=== PATIENT | male | born 1945 | race Caucasian/White ===

== ENCOUNTER → 2019-09-04 | Outpatient (CLI) | payer MEDICARE ==
[~2019-09-04] MED LIST: REGADENOSON 0.4 MG/5 ML SYRINGE ONE
== END | disposition home or self-care (01) ==
LOC: CFH 09:58
PROVIDERS: ATTEND Internal Medicine Cardiovascular Disease
DX: I34.0 Nonrheumatic mitral (valve) insufficiency (principal); I11.0 Hypertensive heart disease with heart failure; I50.9 Heart failure, unspecified; E78.5 Hyperlipidemia, unspecified; E11.9 Type 2 diabetes mellitus without complications; I25.2 Old myocardial infarction; R94.31 Abnormal electrocardiogram [ECG] [EKG]
CPT/HCPCS: 78452; 93017; 93306; A9502; J2785

== ENCOUNTER 2020-02-10 22:48 | Observation (INO) | payer MEDICARE ==
[~2020-02-10] VITALS: Ht 205.7 cm; Wt 105.0 kg
--- NOTE | 2020-02-11 00:25 | NUR ---
PT TO ROOM FROM LOBBY
--- NOTE | 2020-02-11 00:30 | NUR ---
PT PRESENTS TO THE ER C/O WEAKNESS, GRADUAL ONSET X SEVERAL DAYS. FINALLY BEGAN TO GET WORSE TODAY PROMPTING HIS VISIT HERE. PT ALSO C/O SEVERE SWELLING TO THE LEGS BILATERALLY. DENIES ANY CP, SOB, LACEY, DIZZINESS. DOES REPORT A HX OF CHF IN WHICH HE WEARS 3 LPM O2 AT HOME CONTINUOUSLY. SATS 97%. PT WAS FOUND ATTEMPTING TO WALK TO RESTROOM WITH WALKER. APPEARED TO BE BREATHLESS. PT ASKED TO RETURN TO [facility] AND HE WAS PLACED BACK ON O2 AND PROVIDED WITH A URINAL. ALL MONITORING EQUIPMENT APPLIED, SHOWING SINUS RHYTHM ON THE MONITOR WITH A WIDE QRS. PT REPORTS A HX OF DE WITH 3 STENTS (INFERIOR). 12 LEAD EKG COMPLETE. ALL VITALS STABLE. CALL LIGHT WITHIN REACH. WILL CONTINUE TO MONITOR.
[2020-02-11 01:01] LABS: BASOPHILS # (AUTO) 0.04 x10^3/uL (0-0.1); BASOPHILS % (AUTO) 1 % (0-1); EOSINOPHILS # (AUTO) 0.06 x10^3/uL (0-0.4); EOSINOPHILS % (AUTO) 1 % (1-7); LYMPHOCYTES # (AUTO) 1.84 x10^3/uL (1-3.4); LYMPHOCYTES % (AUTO) 22 % (22-44); MD NO; MEAN CORPUSCULAR HEMOGLOBIN 29.9 pg (27.5-34.5); MEAN CORPUSCULAR HGB CONC 32.7 g/dL (33.2-36.2); MEAN CORPUSCULAR VOLUME 91.4 fL (81-97); MEAN PLATELET VOLUME 8.2 fL (7.4-10.4); MONOCYTES # (AUTO) 0.62 x10^3/uL (0.2-0.8); MONOCYTES % (AUTO) 7 % (2-9); NEUTROPHILS # (AUTO) 5.94 x10^3/uL (1.8-6.8); NEUTROPHILS % (AUTO) 70 % (42-75); PLATELET COUNT 182 x10^3/uL (130-400); RED BLOOD COUNT 4.55 x10^6/uL (4.38-5.82); RED CELL DISTRIBUTION WIDTH 14.6 % (9.4-14.8)
[2020-02-11 01:13] LABS: ALBUMIN 3.5 g/dL (3.4-5.0); ANION GAP 4 mmol/L (5-15); CALCIUM 9.2 mg/dL (8.5-10.1); CHLORIDE 106 mmol/L (98-107); CREATININE 1.99 mg/dL (0.7-1.3)
[2020-02-11 01:16] LABS: TROPONIN I 0.023 ng/mL (0.000-0.045)
--- NOTE | 2020-02-11 01:57 | NUR ---
Report received from OLU Ramos. This RN to assume care.
--- NOTE | 2020-02-11 02:08 | NUR ---
PT'S DAUGHTER HERBIE [phone], PT HAS GIVEN PERMISSION TO RELEASE ANY MEDICAL INFORMATION TO HER.
[2020-02-11] MEDS ORDERED: FUROSEMIDE 40 MG/4 ML ONE (02:28)
[2020-02-11] MEDS ORDERED: FUROSEMIDE 40 MG/4 ML IV ONE (02:30)
[2020-02-11] MEDS ORDERED: ACETAMINOPHEN 325 MG TABLET PO PRN (03:00)
[2020-02-11] MEDS ORDERED: FURO20TA3 PO (03:20)
[2020-02-11] MEDS ORDERED: BISA-49 PO (03:20)
[2020-02-11] MEDS ORDERED: CHOL10003 PO (03:20)
[2020-02-11] MEDS ORDERED: ATOR10TA9 PO (03:20)
[2020-02-11] MEDS ORDERED: CLOP75TA PO (03:20)
[2020-02-11] MEDS ORDERED: GABA-827 PO (03:20)
[2020-02-11 03:54] VITALS: BP 120/76
[2020-02-11] MEDS: ENOXAPARIN 40 MG/0.4 ML SQ SCH (04:53)
[2020-02-11 06:43] VITALS: BP 135/79
[2020-02-11] MEDS ORDERED: INSULIN LISPRO 100 UNITS/ML, PEN SQ-INSULIN SCH (07:00)
[2020-02-11 07:42] LABS: TROPONIN I 0.025 ng/mL (0.000-0.045)
[2020-02-11] MEDS ORDERED: FUROSEMIDE 40 MG/4 ML IV SCH (09:00)
[2020-02-11] MEDS ORDERED: METO-95 PO (10:40)
[2020-02-11] MEDS ORDERED: POTA8TAB46 PO (10:40)
[2020-02-11] MEDS ORDERED: ATOR20TA37 PO (10:40)
[2020-02-11] MEDS ORDERED: FURO40TA6 PO (10:40)
[2020-02-11] MEDS ORDERED: SPIR25TA PO (10:40)
[2020-02-11] MEDS ORDERED: LISI5TAB7 PO (10:40)
[2020-02-11] MEDS ORDERED: TAMS-11 PO (10:40)
[2020-02-11 11:47] VITALS: BP 112/65
[2020-02-11] MEDS: INSULIN LISPRO 100 UNITS/ML, PEN SQ-INSULIN SCH ×3 (11:49→21:08)
[2020-02-11] MEDS: CHOLECALCIFEROL 5,000u TAB PO SCH (11:50)
[2020-02-11] MEDS: LISINOPRIL 5 MG TABLET PO SCH (11:50)
[2020-02-11] MEDS: METOPROLOL SUCCINATE 100 MG TAB.ER.24H PO SCH (11:50)
[2020-02-11] MEDS: BISACODYL 5 MG EC TABLET PO SCH (11:50)
[2020-02-11] MEDS: CLOPIDOGREL 75 MG TABLET PO SCH (11:50)
[2020-02-11] MEDS: SPIRONOLACTONE 25 MG TABLET PO SCH (11:50)
[2020-02-11] MEDS: POTASSIUM CHLORIDE 8 MEQ TABLET.ER PO SCH (11:50)
[2020-02-11] MEDS: TAMSULOSIN 0.4 MG CAP.ER.24H PO SCH (11:50)
[2020-02-11 12:28] VITALS: BP 119/75
[2020-02-11 15:20] LABS: TROPONIN I < 0.015 ng/mL (0.000-0.045)
[2020-02-11] MEDS ORDERED: FUROSEMIDE 40 MG TABLET PO SCH (17:00)
[2020-02-11 18:43] VITALS: BP 102/61
[2020-02-11] MEDS ORDERED: INSULIN GLARGINE 100 UNITS/ML, PEN SQ-INSULIN SCH (21:00)
[2020-02-11] MEDS ORDERED: ATORVASTATIN 20 MG TABLET PO SCH (21:00)
[2020-02-12 00:36] VITALS: BP 114/65
[2020-02-12 05:29] LABS: BASOPHILS # (AUTO) 0.03 x10^3/uL (0-0.1); BASOPHILS % (AUTO) 0 % (0-1); EOSINOPHILS # (AUTO) 0.22 x10^3/uL (0-0.4); EOSINOPHILS % (AUTO) 3 % (1-7); LYMPHOCYTES # (AUTO) 1.71 x10^3/uL (1-3.4); LYMPHOCYTES % (AUTO) 22 % (22-44); MD NO; MEAN CORPUSCULAR HEMOGLOBIN 29.6 pg (27.5-34.5); MEAN CORPUSCULAR HGB CONC 32.7 g/dL (33.2-36.2); MEAN CORPUSCULAR VOLUME 90.4 fL (81-97); MEAN PLATELET VOLUME 8.7 fL (7.4-10.4); MONOCYTES # (AUTO) 0.66 x10^3/uL (0.2-0.8); MONOCYTES % (AUTO) 8 % (2-9); NEUTROPHILS # (AUTO) 5.16 x10^3/uL (1.8-6.8); NEUTROPHILS % (AUTO) 66 % (42-75); PLATELET COUNT 150 x10^3/uL (130-400); RED BLOOD COUNT 4.35 x10^6/uL (4.38-5.82); RED CELL DISTRIBUTION WIDTH 14.3 % (9.4-14.8)
[2020-02-12 05:42] LABS: ANION GAP 8 mmol/L (5-15); CALCIUM 9.2 mg/dL (8.5-10.1); CHLORIDE 104 mmol/L (98-107); CREATININE 1.65 mg/dL (0.7-1.3)
[2020-02-12] MEDS: ENOXAPARIN 40 MG/0.4 ML SQ SCH (05:42)
[2020-02-12] MEDS: METOPROLOL SUCCINATE 100 MG TAB.ER.24H PO SCH (05:43)
[2020-02-12 05:46] VITALS: BP 117/72
[2020-02-12 07:36] VITALS: BP 114/74
[2020-02-12] MEDS: TAMSULOSIN 0.4 MG CAP.ER.24H PO SCH (08:02)
[2020-02-12] MEDS: BISACODYL 5 MG EC TABLET PO SCH (08:02)
[2020-02-12] MEDS: INSULIN LISPRO 100 UNITS/ML, PEN SQ-INSULIN SCH ×2 (08:02→11:30)
[2020-02-12] MEDS: CLOPIDOGREL 75 MG TABLET PO SCH (08:02)
[2020-02-12] MEDS: POTASSIUM CHLORIDE 8 MEQ TABLET.ER PO SCH (08:03)
[2020-02-12] MEDS: SPIRONOLACTONE 25 MG TABLET PO SCH (08:03)
[2020-02-12] MEDS: CHOLECALCIFEROL 5,000u TAB PO SCH (08:03)
[2020-02-12] MEDS: LISINOPRIL 5 MG TABLET PO SCH (08:04)
[2020-02-12] MEDS ORDERED: FUROSEMIDE 20 MG TABLET PO SCH (09:00)
[2020-02-12] MEDS ORDERED: ACETAMINOPHEN 325 MG TABLET PO PRN (09:00)
[2020-02-12] MEDS ORDERED: CARV6.2512 PO (10:30)
[2020-02-12] MEDS ORDERED: CHOL500045 PO (10:30)
[2020-02-12] MEDS ORDERED: FURO20TA3 PO (10:30)
[2020-02-12] MEDS ORDERED: INSU100I11 SQ-INSULIN (10:30)
[2020-02-12] MEDS ORDERED: INSU100I13 SQ-INSULIN (10:30)
[2020-02-12 12:02] VITALS: BP 115/66
[2020-02-12] MEDS ORDERED: CARVEDILOL 6.25 MG TABLET PO SCH (18:00)
[2020-02-12] MEDS ORDERED: INSULIN GLARGINE 100 UNITS/ML, PEN SQ-INSULIN SCH (21:00)
== END 2020-02-12 15:43 | disposition home health service (06) ==
LOC: ED 02-11 01:28 → INTOOBSV 02-11 02:54 → OBSVTOIN 02-11 02:54 → EDIP 02-11 02:54 → 4WST 02-11 03:50
PROVIDERS: ADMIT Family Medicine; ATTEND Internal Medicine
DX: I50.23 Acute on chronic systolic (congestive) heart failure (principal); N17.0 Acute kidney failure with tubular necrosis; J96.10 Chronic respiratory failure, unspecified whether with hypoxia or hypercapnia; E11.9 Type 2 diabetes mellitus without complications; E78.5 Hyperlipidemia, unspecified; I25.10 Atherosclerotic heart disease of native coronary artery without angina pectoris; I11.0 Hypertensive heart disease with heart failure; I25.2 Old myocardial infarction; Z87.891 Personal history of nicotine dependence; Z79.899 Other long term (current) drug therapy; Z79.4 Long term (current) use of insulin
CPT/HCPCS: 36415; 71045; 80048; 82040; 82962; 83036; 83880; 84484; 85025; 93005; 96372; 96374; 96376; 97162; 97166; 99285; G0378; J1650; J1815; J1940